=== PATIENT | female | born 1960 | race Caucasian/White ===

== ENCOUNTER 2018-02-16 08:25 | Emergency (ER) | payer BC ==
--- NOTE | 2018-02-16 08:58 | Emergency Department Record ---
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 on truck and has had increasing soreness 0ver her r flank, chest/ abd MD Complaint: Fall Onset/Timin -: Days(s) Fall From: Standing When Fall Occurred: # Days [employer] Fall Witnessed: No Place Fall Occurred: Home Loss of Consciousness: None Prolonged Down Time?: No Symptoms Prior to Fall: None Location: Chest, Abdomen Severity scale (1-10): 7 Quality: Sharp Context: Tripped/slipped Associated Symptoms: Abdominal pain, Chest pain, Shortness of breath - Della Coma Scale Eye Response: (4) Open spontaneously Motor Response: (6) Obeys commands Verbal Response: (5) Oriented Della Total: 15 - Related Data Home Medications Medication Instructions Recorded Confirmed Last Taken Alprazolam 0.25 mg PO DAILY PRN 02/16/18 02/16/18 Unknown Atorvastatin Calcium 20 mg PO DAILY 02/16/18 02/16/18 Unknown Methadone HCl 10 mg PO TID 02/16/18 02/16/18 Unknown Prednisone [Prednisone 10Mg] 10 mg PO DAILY 02/16/18 02/16/18 Unknown Warfarin Sodium 3 mg PO DAILY 02/16/18 02/16/18 Unknown Allergies Allergy/AdvReac Type Severity Reaction Status Date / Time No Known Drug Allergies Allergy Verified 02/16/18 08:35 Travel Screening - Travel/Exposure Within Last 30 Days Have you traveled within the last 30 days?: No Review of Systems Reviewed: No additional complaints except as noted below Constitutional: Reports: As per HPI. Denies: Chills, Fever, Malaise, Night sweats, Weakness, Weight change Eyes: Reports: As per HPI. Denies: Eye discharge, Eye pain, Photophobia, Vision change ENT: Reports: As per HPI. Denies: Congestion, Dental pain, Ear pain, Epistaxis , Hearing loss, Throat pain Respiratory: Reports: As per HPI. Denies: Cough, Dyspnea, Hemoptysis, Stridor, Wheezes Cardiovascular: Reports: As per HPI, Chest pain. Denies: Arrhythmia, Dyspnea on exertion, Edema, Murmurs, Orthopnea, Palpitations, Paroxysmal nocturnal dyspnea, Rheumatic Fever, Syncope Endocrine: Reports: As per HPI. Denies: Fatigue, Heat or cold intolerance, Polydipsia, Polyuria Gastrointestinal: Reports: As per HPI, Abdominal pain. Denies: Constipation, Diarrhea, Hematemesis, Hematochezia, Melena, Nausea, Vomiting Genitourinary: Reports: As per HPI. Denies: Abnormal menses, Discharge, Dyspareunia, Dysuria, Frequency, Hematuria, Incontinence, Retention, Urgency Musculoskeletal: Reports: As per HPI. Denies: Arthralgia, Back pain, Gout, Joint swelling, Myalgia, Neck pain Skin: Reports: As per HPI. Denies: Bruising, Change in color, Change in hair/ nails, Lesions, Pruritus, Rash Neurological: Reports: As per HPI. Denies: Abnormal gait, Confusion, Headache, Numbness, Paresthesias, Seizure, Tingling, Tremors, Vertigo, Weakness Psychiatric: Reports: As per HPI. Denies: Anxiety, Auditory hallucinations, Depression, Homicidal thoughts, Suicidal thoughts, Visual hallucinations Hematological/Lymphatic: Reports: As per HPI. Denies: Anemia, Blood Clots, Easy bleeding, Easy bruising, Swollen glands Past Medical History - SOCIAL HISTORY Smoking Status: Current every day smoker Alcohol Use: None Drug Use Detail:: Marijuana - RESPIRATORY Hx Respiratory Disorders: No - CARDIOVASCULAR Hx Cardio Disorders: Yes Hx Deep Vein Thrombosis: Yes - NEURO Hx Neuro Disorders: No - GI Hx GI Disorders: No - Hx Genitourinary Disorders: No - ENDOCRINE Hx Endocrine Disorders: No - MUSCULOSKELETAL Hx Musculoskeletal Disorders: Yes - PSYCH Hx Psych Problems: No - HEMATOLOGY/ONCOLOGY Hx Hematology/Oncology Disorders: No Family Medical History Any Significant Family History?: No Physical Exam - General General Appearance: Alert, Oriented x3, Cooperative, Mild distress - Head Head exam: Normal inspection - Eye Eye exam: Normal appearance, PERRL, EOMI Pupils: Normal accommodation - ENT ENT exam: Normal exam, Mucous membranes moist, Normal external ear exam, Normal orophraynx Ear exam: Normal external inspection. negative: External canal tenderness Nasal Exam: Normal inspection. negative: Discharge, Sinus tenderness Mouth exam: Normal external inspection, Tongue normal Teeth exam: Normal inspection. negative: Dental caries Throat exam: Normal inspection. negative: Tonsillar erythema, Tonsillar exudate - Neck Neck exam: Normal inspection, Full ROM. negative: Tenderness - Respiratory Respiratory exam: Normal lung sounds bilaterally, Chest wall tenderness ( right lower lateral chest). negative: Respiratory distress - Cardiovascular Cardiovascular Exam: Regular rate, Normal rhythm, Normal heart sounds - GI/Abdominal GI/Abdominal exam: Soft, Normal bowel sounds, Tenderness (ruq), Other ( ecchymosis over ruq/flank) - Rectal Rectal exam: Deferred - exam: Deferred - Extremities Extremities exam: Normal inspection, Full ROM, Normal capillary refill. negative: Tenderness - Back Back exam: Reports: Normal inspection, Full ROM. Denies: Muscle spasm, Rash noted, Tenderness - Neurological Neurological exam: Alert, CN II-XII intact, Normal gait, Oriented X3 - Psychiatric Psychiatric exam: Normal affect, Normal mood - Skin Skin exam: Dry, Intact, Normal color, Warm Course Vital Signs 02/16/18 08:29 Temperature 98.5 F Pulse Rate 88 Respiratory 20 Rate Blood Pressure 111/77 Pulse Ox 97 - Reevaluation(s) Reevaluation #1: 02/16/18 11:24 pts cts neg. Medical Decision Making - Lab Data Result diagrams: 02/16/18 08:55 02/16/18 08:55 Disposition Disposition: Discharge Clinical Impression: Contusion, flank Qualifiers: Encounter type: initial encounter Qualified Code(s): S30.1XXA - Contusion of abdominal wall, initial encounter Disposition: Home, Self-Care Condition: (1) Good Instructions: Contusion in Adults (ED) Additional Instructions: follow up with family doctor. return sooner if worse. rotate ice and moist heat. Forms: Patient Portal Access Quality - Quality Measures Quality Measures: N/A - Blood Pressure Screening Does Patient Have Any of the Following: No Blood Pressure Classification: Normal BP Reading Systolic Measurement: 111 Diastolic Measurement: 77 Screening for High Blood Pressure: < Normal BP, F/U Not Required > [[id number]]
[2018-02-16 09:02] LABS: BASO % 0.3 % (0-6); EOS % 2.1 % (0-6); GRAN % 79.2 % (47-80); HEMATOCRIT 45.1 % (35.0-47.0); HEMOGLOBIN 14.3 gm/dl (11.6-16.0); LYMPH % 12.9 % (16-45); MEAN CORPUSCULAR HEMOGLOBIN 28.5 pg (27-33); MEAN CORPUSCULAR HGB CONC 31.7 g/dl (32-36); MEAN PLATELET VOLUME 8.5 fl (7.4-10.4); MONO % 5.5 % (0-9); PLATELET COUNT 361 K/uL (130-400); RED BLOOD COUNT 5.01 M/uL (3.80-5.40); WHITE BLOOD COUNT W/O DIFF 14.8 K/uL (4.2-12.2)
[2018-02-16 09:14] LABS: INR 2.3; PARTIAL THROMBOPLASTIN TIME 32.7 SECONDS (24.5-39.1); PROTHROMBIN TIME (PATIENT) 22.4 SECONDS (9.5-12.1)
[2018-02-16 10:11] LABS: BLOOD UREA NITROGEN 8 mg/dL (6-20); CREATININE 0.6 mg/dL (0.5-0.9); EST GLOMERULAR FILTRATION RATE > 60 mL/min
[2018-02-16 10:12] LABS: TOTAL PROTEIN 7.8 g/dL (6.6-8.7)
[2018-02-16 10:14] LABS: GLUCOSE,RANDOM 128 mg/dL (74-109)
[2018-02-16 10:17] LABS: ALB/GLOB RATIO 0.8 (1.1-1.8); ALBUMIN 3.4 g/dL (4.0-5.0); ALKALINE PHOSPHATASE 99 U/L (35-104); ALT/SGPT 20 U/L (<33); AST/SGOT 29 U/L (10.0-35.0)
[2018-02-16 11:13] LABS: URINE APPEARANCE CLEAR; URINE BILIRUBIN NEGATIVE (NEGATIVE); URINE BLOOD SMALL (NEGATIVE); URINE COLOR YELLOW; URINE GLUCOSE (UA) NEGATIVE (NEGATIVE); URINE KETONE NEGATIVE (NEGATIVE); URINE LEUKOCYTE ESTERASE NEGATIVE (NEGATIVE); URINE NITRITE NEGATIVE (NEGATIVE); URINE PROTEIN NEGATIVE (NEGATIVE); URINE UROBILINOGEN 0.2 E.U./dL (0.20 - 1.00)
[2018-02-16] MEDS ORDERED: HYDROCODONE/APAP 5/325MG TABLET PO ONE (11:24)
[2018-02-16 11:28] LABS: URINE EPITHELIAL CELLS 16 - 20 (FEW); URINE WBC 0 - 2 (0-2/hpf)
--- NOTE | 2018-02-17 05:37 | CT SCAN REPORT ---
EXAM: CT OF THE CHEST WITH CONTRAST HISTORY: CHEST PAIN. TECHNIQUE: CT of the chest was performed after intravenous administration of 100 ml of Omnipaque 300 contrast material. FINDINGS: The mediastinal vasculature enhances normally. The heart and pericardium appear normal. No mediastinal or hilar lymphadenopathy. The lung archer are clear. No infiltrate or pleural effusion. The visualized upper abdominal structures are normal. IMPRESSION: NEGATIVE CT OF THE CHEST. JOB NUMBER: [id number] MTDD
--- NOTE | 2018-02-17 05:41 | CT SCAN REPORT ---
EXAM: CT OF THE ABDOMEN AND PELVIS WITH CONTRAST HISTORY: INJURY. TECHNIQUE: Sequential axial images were obtained from the diaphragms through the ischiorectal fossa after intravenous administration of 100 ml of Omnipaque 300 contrast material. FINDINGS: The visualized lung bases appear normal. The liver appears homogeneous. The gallbladder is packed with gallstones. No ductal dilatation. The pancreas and spleen appear normal. The adrenal glands and kidneys appear normal. No CT findings suggestive of obstructive uropathy. The small and large bowel appears normal. The appendix is visualized and appears normal. No rib fracture deformities are appreciated. The lumbar spine appears normal. IMPRESSION: 1. NO ACUTE ABDOMINAL OR PELVIC DISEASE PROCESS. 2. CHOLELITHIASIS WITHOUT DUCTAL DILATATION. THERE APPEARS TO BE GALLBLADDER WALL THICKENING. JOB NUMBER: [id number] MTDD
== END 2018-02-16 11:45 | disposition home or self-care (01) ==
LOC: ER 08:25
DX: S30.1XXA Contusion of abdominal wall, initial encounter (principal); R07.81 Pleurodynia; R06.02 Shortness of breath; W01.10XA Fall on same level from slipping, tripping and stumbling with subsequent striking against unspecified object, initial encounter; Y92.009 Unspecified place in unspecified non-institutional (private) residence as the place of occurrence of the external cause; F17.210 Nicotine dependence, cigarettes, uncomplicated; Z79.01 Long term (current) use of anticoagulants
CPT/HCPCS: 99283; 99284; 85025; 85730; 85610; 80053; 81001; 71260; 74177; Q9967